=== PATIENT | female | born 1955 | race Caucasian/White ===

== ENCOUNTER 2017-05-01 13:39 | Inpatient (IN) ==
[2017-05-01 14:50] LABS: Basophils % 0.3 %; Eosinophils # 0.1 K/mcL (0.0-0.6); Eosinophils % 1.2 %; Hemoglobin 16.4 g/dL (11.5-15.4); Immature Granulocytes % 0.4 % (0-4); Lymphocytes % 17.5 %; Mean Corpuscular HGB Conc 34.2 g/dL (31.6-35.5); Mean Corpuscular Hemoglobin 32.6 pg (28.0-33.3); Mean Corpuscular Volume 95.4 fL (83.0-100.0); Mean Platelet Volume 9.2 fL (9.4-12.4); Monocytes # 0.8 K/mcL (0.0-1.3); Monocytes % 7.5 %; Neutrophils # 8.2 K/mcL (1.6-8.9); Platelet Count 237 K/mcL (140-400); Red Blood Count 5.03 M/mcL (3.82-4.97); Red Cell Distribution Width 14.6 % (11.5-14.5); Segmented Neutrophils % 73.1 %
[2017-05-01 15:05] LABS: BUN/Creatinine Ratio 16 (6-26); Blood Urea Nitrogen 17 mg/dL (7-20); Calcium 9.3 mg/dL (8.6-10.8); Carbon Dioxide 26 mEq/L (19-29); Chloride 105 mEq/L (98-109); Glucose 176 mg/dL (70-99); Osmolality,Calculated 296 (280-300); Potassium 3.7 mEq/L (3.5-4.5); Sodium 140 mEq/L (136-145); eGFR For African Americans > 60 (> 60); eGFR For Non-African Americans 54 (> 60)
--- NOTE | 2017-05-01 15:58 | IR Progress Note ---
Vital Signs: Vital Signs/O2 Sat, Most Current Temp Pulse Resp BP Pulse Ox 98.9 F 113 18 120/73 87 05/01/17 13:45 05/01/17 14:50 05/01/17 14:50 05/01/17 14:50 05/01/17 14:50 Recent Labs: Lab Results 05/01/17 05/01/17 14:22 14:22 WBC 11.2 H RBC 5.03 H Hgb 16.4 H Hct 48.0 H MCV 95.4 MCH 32.6 MCHC 34.2 RDW 14.6 H Plt Count 237 MPV 9.2 L Neutrophils # 8.2 Lymphocytes # 2.0 Monocytes # 0.8 Eosinophils # 0.1 Basophils # 0.0 Sodium 140 Potassium 3.7 Chloride 105 Carbon Dioxide 26 BUN 17 Creatinine 1.04 Est GFR ( Amer) > 60 Est GFR (Non-Af Amer) 54 L BUN/Creatinine Ratio 16 Glucose 176 H Calcium 9.3 Assessment and Plan Asked to perform left thoracentesis. Survey ultrasound shows no fluid, although this is limited given her body habitus. Recommend CT chest for further evaluation. Discussed with ER physician.
--- NOTE | 2017-05-01 16:23 | Emergency Department Note ---
Disposition Clinical Impression: Recurrent left pleural effusion Disposition: Admitted As Inpatient Condition: Fair Referrals: Tamara Castorena CNP [Primary Care Provider] - Forms: ED Satisfaction Letter General Adult HPI - General Chief complaint: ED Shortness of Breath/Dyspnea Stated complaint: YVONNE Time Seen by Provider: 05/01/17 15:28 Source: patient Limitations: no limitations - History of Present Illness HPI Narrative: This is a 61-year-old female presents with dyspnea that she says has been going on over several days. She apparently does have a history of lung malignancy and is under treatment for this with oncology. She states that a long time ago she had have a pleurocentesis done. Now she feels short of breath. Worse with lying flat. She does have some chronic lower extremity edema as well. She has not had any chest pain. She did not seem to be aware of any history of COPD or CHF. Pain Scale: 0 - Related Data Home Medications Medication Instructions Recorded Confirmed Amitriptyline [Elavil] 50 mg PO BID 07/09/15 04/10/17 Aspirin Enteric Coated [Aspirin EC] 81 mg PO DAILY 07/09/15 04/10/17 Pravastatin Sodium [Pravachol] 20 mg PO DAILY 07/09/15 04/10/17 Metformin HCl [Metformin HCl ER] 500 mg PO DAILY 07/02/16 04/10/17 Lisinopril [Zestril] 20 mg PO DAILY 08/09/16 04/10/17 Brimonidine Tartrate/Timolol 1 drop OP BID 10/24/16 04/10/17 [Combigan 0.2%-0.5% Eye Drops] Latanoprost [Xalatan] 1 drop OP HS 10/24/16 04/10/17 Oxycodone HCl/Acetaminophen 1 tab PO 5XD PRN 10/24/16 04/10/17 [Percocet 10-325 mg Tablet] Paroxetine HCl [Paroxetine] 40 mg PO DAILY 11/01/16 04/10/17 Previous Rx's Medication Instructions Recorded Prochlorperazine Maleate 10 mg PO Q6HR PRN #40 tablet 11/02/16 [Compazine] LORazepam [Ativan] 0.5 mg PO Q6H PRN #90 tablet 11/30/16 Sucralfate [Carafate] 1 gm PO QIDAC #120 tablet 03/14/17 Allergies Allergy/AdvReac Type Severity Reaction Status Date / Time Sulfa (Sulfonamide Allergy Rash Verified 10/24/16 15:33 Antibiotics) All systems ED: reviewed and negative except as stated. Constitutional: Reports: weakness. Denies: fever Cardiovascular: Denies: chest pain Gastrointestinal: Denies: vomiting Past Medical History - Past Medical History Attestation: Yes The following information was validated with the patient. Medical history: Reports: cancer, COPD, diabetes, fibromyalgia, glaucoma, hypertension, venous stasis Surgical history: Reports: appendectomy, cataract, cholecystectomy, ureteral stent Psychiatric history: Reports: anxiety, depression [employer] history: Reports: no [employer] history - Social History Smoking Status: Current every day smoker Smokeless Tobacco Status: No Alcohol use: Reports: none Drug use: Reports: none Physical Exam Patient is morbidly obese - General Limitations: no limitations General appearance: alert - Head Head exam: atraumatic - Eye Eye exam: Present: PERRL - ENT ENT exam: normal oropharynx - Respiratory Respiratory exam: Present: other (Diminished breath sounds on the left) - Cardiovascular Cardiovascular exam: Present: regular rate, normal rhythm - Abdominal Exam Abdominal exam: Present: soft, Non-Tender - Extremities Exam Extremities exam: Present: other (+3 lower extremity edema) Course Course Narrative: This patient's initial chest x-ray showed keiry out of the left side which we initially suspected was a pleural effusion to a large degree. I consulted interventional radiology. He was not able to find the fluid by ultrasound which we suspected might be due to the patient's body habitus that she is very morbidly obese. Therefore interventional radiology recommended getting a CT scan to further evaluate if that was actually what was going on. She does have a large pleural effusion there per the radiologist on the CT report. At this point IRs now gone. She will need to be admitted and this will likely be done in the morning. The patient has remained clinically stable. Case discussed with the hospitalist to arrange for admission. Vital Signs Temperature 98.9 F 05/01/17 13:45 Pulse Rate 113 05/01/17 13:45 Respiratory Rate 18 05/01/17 13:45 Blood Pressure 120/73 05/01/17 13:45 O2 Sat by Pulse Oximetry 87 05/01/17 13:45 Temperature 98.9 F 05/01/17 13:45 Pulse Rate 113 05/01/17 14:50 Respiratory Rate 18 05/01/17 14:50 Blood Pressure 120/73 05/01/17 14:50 O2 Sat by Pulse Oximetry 87 05/01/17 14:50 Oxygen Delivery Oxygen Delivery Room Air Medical Decision Making - Medical Records Medical records reviewed: Yes I reviewed the patient's medical records. - Lab Data Lab results reviewed: Yes I reviewed the patient's lab results. Result diagrams: 05/01/17 14:22 05/01/17 14:22 Lab Results 05/01/17 05/01/17 05/01/17 Range/Units 14:22 14:22 14:22 WBC 11.2 H (4.3-11.1) K/mcL RBC 5.03 H (3.82-4.97) M/mcL Hgb 16.4 H (11.5-15.4) g/dL Hct 48.0 H (35.3-44.9) % MCV 95.4 (83.0-100.0) fL MCH 32.6 (28.0-33.3) pg MCHC 34.2 (31.6-35.5) g/dL RDW 14.6 H (11.5-14.5) % Plt Count 237 (140-400) K/mcL MPV 9.2 L (9.4-12.4) fL Immature Gran % 0.4 (0-4) % Seg Neutrophils % 73.1 % Lymphocytes % 17.5 % Monocytes % 7.5 % Eosinophils % 1.2 % Basophils % 0.3 % Neutrophils # 8.2 (1.6-8.9) K/mcL Lymphocytes # 2.0 (0.6-4.6) K/mcL Monocytes # 0.8 (0.0-1.3) K/mcL Eosinophils # 0.1 (0.0-0.6) K/mcL Basophils # 0.0 (0.0-0.2) K/mcL Sodium 140 (136-145) mEq/L Potassium 3.7 (3.5-4.5) mEq/L Chloride 105 (98-109) mEq/L Carbon Dioxide 26 (19-29) mEq/L BUN 17 (7-20) mg/dL Creatinine 1.04 (0.57-1.11) mg/dL Est GFR ( Amer) > 60 (> 60) Est GFR (Non-Af Amer) 54 L (> 60) BUN/Creatinine Ratio 16 (6-26) Glucose 176 H (70-99) mg/dL Calculated Osmolality 296 (280-300) Calcium 9.3 (8.6-10.8) mg/dL Troponin I 0.01 (0-0.03) ng/mL B-Natriuretic Peptide (0-100) pg/mL Urine Color (Yellow) Urine Clarity (Clear) Urine pH (5.0-8.0) pH Units Ur Specific [place] (1.010-1.025) Urine Protein (Neg-Trace) mg/dL Urine Glucose (UA) (Normal) mg/dL Urine Ketones (Negative) mg/dL Urine Blood (Negative) Urine Nitrite (Negative) Urine Bilirubin (Negative) Urine Urobilinogen (Normal) mg/dL Ur Leukocyte Esterase (Negative) Urine Microscopic RBC (0-3) per hpf Urine Microscopic WBC (0-3) per hpf Ur Squamous Epith Cells (None-Few) per lpf Urine Bacteria (None-Few) per hpf Hyaline Casts (None-Few) per lpf Ur Culture Indicated? (NO) 05/01/17 05/01/17 Range/Units 14:22 16:05 WBC (4.3-11.1) K/mcL RBC (3.82-4.97) M/mcL Hgb (11.5-15.4) g/dL Hct (35.3-44.9) % MCV (83.0-100.0) fL MCH (28.0-33.3) pg MCHC (31.6-35.5) g/dL RDW (11.5-14.5) % Plt Count (140-400) K/mcL MPV (9.4-12.4) fL Immature Gran % (0-4) % Seg Neutrophils % % Lymphocytes % % Monocytes % % Eosinophils % % Basophils % % Neutrophils # (1.6-8.9) K/mcL Lymphocytes # (0.6-4.6) K/mcL Monocytes # (0.0-1.3) K/mcL Eosinophils # (0.0-0.6) K/mcL Basophils # (0.0-0.2) K/mcL Sodium (136-145) mEq/L Potassium (3.5-4.5) mEq/L Chloride (98-109) mEq/L Carbon Dioxide (19-29) mEq/L BUN (7-20) mg/dL Creatinine (0.57-1.11) mg/dL Est GFR ( Amer) (> 60) Est GFR (Non-Af Amer) (> 60) BUN/Creatinine Ratio (6-26) Glucose (70-99) mg/dL Calculated Osmolality (280-300) Calcium (8.6-10.8) mg/dL Troponin I (0-0.03) ng/mL B-Natriuretic Peptide 27 (0-100) pg/mL Urine Color Dark Yellow (Yellow) Urine Clarity Turbid A (Clear) Urine pH 7.5 (5.0-8.0) pH Units Ur Specific [place] 1.021 (1.010-1.025) Urine Protein 30 H (Neg-Trace) mg/dL Urine Glucose (UA) Normal (Normal) mg/dL Urine Ketones Negative (Negative) mg/dL Urine Blood Large H (Negative) Urine Nitrite Positive A (Negative) Urine Bilirubin Negative (Negative) Urine Urobilinogen Normal (Normal) mg/dL Ur Leukocyte Esterase Large H (Negative) Urine Microscopic RBC TNTC H (0-3) per hpf Urine Microscopic WBC TNTC H (0-3) per hpf Ur Squamous Epith Cells Many H (None-Few) per lpf Urine Bacteria Many H (None-Few) per hpf Hyaline Casts None Seen (None-Few) per lpf Ur Culture Indicated? YES A (NO) - Radiology Data Radiology results reviewed: Yes I reviewed the patient's radiology results. - EKG Data EKG #1 EKG attestation: Yes I reviewed and interpreted this EKG. EKG results narrative: EKG interpreted by me showing sinus tachycardia rate 114, QRS of 90, QTC of 399 , axis of 78 no new ischemic changes.
[2017-05-01 18:10] LABS: Bilirubin,Urine Negative (Negative); Blood,Urine Large (Negative); Clarity,Urine Turbid (Clear); Color,Urine Dark Yellow (Yellow); Glucose,Urine (UA) Normal (Normal); Ketones,Urine Negative (Negative); Leukocyte Esterase,Urine Large (Negative); Nitrite,Urine Positive (Negative); PH,Urine 7.5 pH Units (5.0-8.0); Protein,Urine 30 mg/dL (Neg-Trace); Specific Gravity,Urine 1.021 (1.010-1.025); Urobilinogen,Urine Normal (Normal)
[2017-05-01 18:11] LABS: Bacteria,Urine Many per hpf (None-Few); Hyaline Casts,Urine None Seen per lpf (None-Few); RBC,Urine TNTC per hpf (0-3); Squamous Epithelial Cell,Urine Many per lpf (None-Few); WBC,Urine TNTC per hpf (0-3)
[2017-05-01] MEDS ORDERED: Ondansetron 4 MG/2 ML VIAL IVP PRN (21:59)
[2017-05-01] MEDS ORDERED: *HR* Morphine 2 MG/ML SYRINGE IVP PRN (21:59)
[2017-05-01] MEDS ORDERED: Naloxone 0.4 MG/ML INJ IVP PRN (21:59)
[2017-05-01] MEDS ORDERED: Acetaminophen 325 MG TABLET PO PRN (21:59)
[2017-05-01] MEDS ORDERED: D5% in Water 1,000 ML IVC PRN (22:01)
[2017-05-01] MEDS ORDERED: Dextrose Gel 15 GM PO PRN ×2 (22:01)
[2017-05-01] MEDS ORDERED: *HR* Dextrose 50 % in Water (Syg) 50 ML SYRINGE IVP PRN (22:01)
[2017-05-01] MEDS ORDERED: *HR* LORazepam 0.5 MG TABLET PO PRN (22:02)
--- NOTE | 2017-05-01 22:07 | Internal Med History&Physical ---
Date of Encounter: 05/01/17 Time of Encounter: 22:06 Assessment and Plan (1) Acute respiratory failure with hypoxia Current visit: Yes Status: Acute Acute hypoxic respiratory failure secondary to large recurrent pleural effusion likely malignant related to lung cancer Start Lasix IV twice a day, strict I's and O's, daily weight Schedule thoracentesis in the morning with interventional radiology Nothing by mouth after midnight for procedure Omeprazole for GI prophylaxis and sequential compression devices for DVT prophylaxis. The patient will be admitted as inpatient, expected stay more than 2 minutes. DNR CC arrest DNI. Time spent on this admission 45 minutes (2) Urinary tract infection Current visit: No Status: Acute Start Levaquin, await culture report Order lactic acid and blood cultures Qualifiers: Urinary tract infection type: site unspecified Hematuria presence: without hematuria Qualified Code(s): N39.0 - Urinary tract infection, site not specified (3) COPD (chronic obstructive pulmonary disease) Current visit: No Status: Chronic Stable, no steroids Qualifiers: COPD type: unspecified COPD Qualified Code(s): J44.9 - Chronic obstructive pulmonary disease, unspecified (4) Hypertension Current visit: No Status: Chronic Qualifiers: Hypertension type: essential hypertension Qualified Code(s): I10 - Essential (primary) hypertension (5) Diabetes Current visit: No Status: Chronic Insulin sliding scale Qualifiers: Diabetes mellitus type: type 2 Diabetes mellitus complication status: with skin complications Diabetes mellitus complication detail: with foot ulcer Diabetes mellitus mcfp insulin use: without termite inspector use Qualified Code( s): E11.621 - Type 2 diabetes mellitus with foot ulcer; L97.509 - Non-pressure chronic ulcer of other part of unspecified foot with unspecified severity (6) Morbid obesity with BMI of 70 and over, adult Current visit: No Status: Acute (7) Tobacco use Current visit: No Status: Acute smoking cessation counseling given for 5 minutes.ncot patch ordered (8) Pleural effusion Current visit: No Status: Acute Recurrent left pleural effusion Plan as stated above (9) Small cell carcinoma of left lung Current visit: No Status: Acute (10) Recurrent left pleural effusion Current visit: Yes Status: Acute Internal Medicine - H&P: HPI Chief complaint: Short of breath Admitted From: Emergency Dept History of present illness: Ms. Braswell is a 61 year old female with a past medical history of small cell carcinoma status post chemotherapy and radiotherapy, chronic kidney disease is stage III, diabetes type 2 not insulin-dependent and recurrent left pleural effusion status post thoracenteses in the past. The patient came complaining of severe difficulty breathing worse in the past 3 days, bringing up clear phlegm. A CT scan of the thorax shows a very large left pleural effusion that is compressing the entire lung. She was desaturating down to 87%, heart rate was 113 White blood cell count 11.2 hemoglobin is 16.4, has been complaining of leg edema and some dysuria. The UA shows too numerous to count white blood cells, many bacteria and positive nitrates. Urine is very foul-smelling. Patient denies any pain at the moment. Feels very weak Past Med Surg Social Fam HX - Past Medical History Medical history: cancer (Left small cell carcinoma of the lung status post chemotherapy and radiation), COPD (Oxygen dependent using oxygen only as needed) , diabetes (Not insulin-dependent), fibromyalgia, glaucoma, hypertension, venous stasis, other (Chronic kidney disease stage III, depression, glaucoma, venous test his, nephrolithiasis, tobacco use, recurrent left pleural effusion likely malignant, respiratory failure, osteoarthritis) Psychiatric history: anxiety, depression - Past Surgical History Surgical History: appendectomy, cataract, cholecystectomy, ureteral stent, other (Bronchoscopy, cataract surgery, thoracentesis) - Social History Smoking Status: Current every day smoker Packs per day: One half packs per day Smokeless Tobacco Status: No Alcohol use: none Drug use: none - Family History Mother Living Status: Hx Family Cardiac Disorders: No Hx Family Respiratory Disorders: No Hx Family Cancer: Yes Father Living Status: Hx Family Cardiac Disorders: No Hx Family Respiratory Disorders: No Hx Family Cancer: Yes - Additional Family History Additional family history: Father with colon cancer, mother with ovarian cancer and myocardial infarction Internal Medicine - H&P: Meds Amitriptyline [Elavil] 50 mg PO BID 07/09/15 [History] Aspirin Enteric Coated [Aspirin EC] 81 mg PO DAILY 07/09/15 [History] Pravastatin Sodium [Pravachol] 20 mg PO DAILY 07/09/15 [History] Metformin HCl [Metformin HCl ER] 500 mg PO DAILY 07/02/16 [History] Lisinopril [Zestril] 20 mg PO DAILY 08/09/16 [History] Brimonidine Tartrate/Timolol [Combigan 0.2%-0.5% Eye Drops] 1 drop OP BID [History] Latanoprost [Xalatan] 1 drop OP HS 10/24/16 [History] Oxycodone HCl/Acetaminophen [Percocet 10-325 mg Tablet] 1 tab PO 5XD PRN [History] Paroxetine HCl [Paroxetine] 40 mg PO DAILY 11/01/16 [History] LORazepam [Ativan] 0.5 mg PO Q6H PRN #90 tablet 11/30/16 [Rx] Albuterol Sulfate [Albuterol Inhaler] 2 puff IH Q4H PRN 05/01/17 [History] Oxygen 4 l NS AD 05/01/17 [History] Allergies Sulfa (Sulfonamide Antibiotics) Allergy (Verified 10/24/16 15:33) Rash All Systems PM: A 10-system review of systems was performed and is negative for pertinent findings except as documented above in the HPI. Review of systems: She is short of breath, other systems out of the 10 reviewed were negative - Constitutional Vitals: Temp Pulse Resp BP Pulse Ox 98.9 F 105 16 127/92 95 05/01/17 13:45 05/01/17 21:00 05/01/17 21:58 05/01/17 21:58 05/01/17 21:00 General appearance: Present: A&O X 3, morbidly obese - Head Head exam: Present: atraumatic, normocephalic - Eye Eye exam: Present: PERRL, conjuntiva pink, sclera anicteric Pupils: Present: PERRL - Neck Neck exam general surgery: Present: supple, trachea midline. Absent: lymphadenopathy - Respiratory Respiratory exam: Present: CTAB. Absent: accessory muscle use, rales (Blunted breath sounds in the left lung field), rhonchi, wheezes - Cardiovascular Cardiovascular exam: Present: RRR, +S1, +S2. Absent: diastolic murmur, gallop, rubs, systolic murmur - GI/Abdominal GI/Abdominal exam: Present: normal bowel sounds, soft, no peritoneal signs. Absent: distended, tenderness - Extremities Exam Extremities exam: Present: pedal edema (+2 pitting edema in both lower extremities), warm, radial pulses palpable and symetrical. Absent: calf tenderness, cyanotic - Neurological Exam Neurological exam: Present: CN II-XII intact, oriented X3, no focal deficits. Absent: pronater drift, facial droop, speech deficit - Skin Skin exam: Present: dry, intact Internal Med - H&P Results - Labs CBC & Chem 7: 05/01/17 14:22 05/01/17 14:22
[2017-05-01] MEDS ORDERED: Insulin LISPRO 300 UNITS/3 ML VIAL SQ SCH (22:15)
[2017-05-01] MEDS: Ipratropium/Albuterol Neb 3 ML IH SCH (22:19)
[2017-05-01] MEDS: Furosemide 40 MG/4 ML VIAL IVP SCH (23:00)
[2017-05-01] MEDS: Levofloxacin 750 MG/150 ML 750 MG/150 ML BAG IVPB SCH (23:00)
[2017-05-01] MEDS: Nicotine 21 MG PATCH.TD24 TD SCH (23:00)
[2017-05-02] MEDS ORDERED: *HR* OxyCODONE/APAP 10/325 TABLET PO PRN ×2 (01:22→11:41)
[2017-05-02 03:44] LABS: Hemoglobin 16.1 g/dL (11.5-15.4); Mean Corpuscular HGB Conc 33.5 g/dL (31.6-35.5); Mean Corpuscular Hemoglobin 31.8 pg (28.0-33.3); Mean Corpuscular Volume 94.7 fL (83.0-100.0); Mean Platelet Volume 8.7 fL (9.4-12.4); Platelet Count 240 K/mcL (140-400); Red Blood Count 5.07 M/mcL (3.82-4.97); Red Cell Distribution Width 14.6 % (11.5-14.5)
[2017-05-02 03:53] LABS: BUN/Creatinine Ratio 17 (6-26); Blood Urea Nitrogen 17 mg/dL (7-20); Calcium 9.3 mg/dL (8.6-10.8); Carbon Dioxide 28 mEq/L (19-29); Chloride 105 mEq/L (98-109); Glucose 158 mg/dL (70-99); Osmolality,Calculated 295 (280-300); Potassium 3.9 mEq/L (3.5-4.5); Sodium 140 mEq/L (136-145); eGFR For African Americans > 60 (> 60); eGFR For Non-African Americans 58 (> 60)
[2017-05-02] MEDS: Ipratropium/Albuterol Neb 3 ML IH SCH ×3 (04:54→16:48)
[2017-05-02] MEDS ORDERED: Insulin LISPRO 300 UNITS/3 ML VIAL SQ SCH (07:30)
[2017-05-02] MEDS: Nicotine 21 MG PATCH.TD24 TD SCH (08:14)
[2017-05-02] MEDS: Levofloxacin 750 MG/150 ML 750 MG/150 ML BAG IVPB SCH (08:15)
[2017-05-02] MEDS ORDERED: Aspirin Enteric Coated 81 MG Tablet PO SCH (09:00)
[2017-05-02] MEDS ORDERED: COMBIGAN OP SCH (09:00)
[2017-05-02] MEDS ORDERED: Lisinopril 20 MG TABLET PO SCH (09:00)
[2017-05-02] MEDS ORDERED: EYE OP SCH (09:00)
--- NOTE | 2017-05-02 09:02 | Electrocardiograph Report ---
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
--- NOTE | 2017-05-02 09:13 | Pulmonology Consult Note ---
<Korey Landers - Last Filed: 05/02/17 14:18> Date of Encounter: 05/02/17 Time of Encounter: 09:08 Assessment and Plan (1) Acute respiratory failure with hypoxia Current Visit: Yes Status: Acute 61-year-old female with history of COPD, EVARISTO, small cell lung cancer, current smoker presents with chief complaint of shortness of breath of 3 days with increasing oxygenation requirements. Patient underwent CT chest showing large left pleural effusion encompassing entire left thoracic cavity with compression of the left lung. Patient had recurrent pleural effusions, s/p thoracentesis in the past secondary to left small cell lung cancer. Left pleural effusion resolved after starting chemotherapy which was completed in January. Patient had radiation therapy which was completed in February. -2nd to left pleural effusion 2nd to malignancy -IR consulted for throacentesis -contunue supplemental O2 -Continue diuresis with Lasix: Patient has bilateral lower extremity pitting edema. -Strict I's and O's. (2) Recurrent left pleural effusion Current Visit: Yes Status: Acute 2nd left small cell lung cancer may need reevaluation by oncology for further treatment of small cell lung cancer Will need pleurx catheter (3) DVT prophylaxis Current Visit: Yes Status: Acute EPCD start heparin (4) Small cell carcinoma of left lung Current Visit: Yes Status: Acute hx of small cell carcinoma of left lung. Negative for metasatic disease as per Onc consult note diagnosed in Oct 2016 s/p chemo radiation will start radiation of brain for prophylaxis Patient had recurrent left pleural effusions before starting chemotherapy however they resolved after treatment. Consult oncology for further recommendations (5) Tobacco use Current Visit: No Status: Acute Patient has [id number] history. Continues to smoke half a pack a day States she is planning on quitting. She was told the risks of continued cigarette smoking. (6) COPD (chronic obstructive pulmonary disease) Current Visit: Yes Status: Chronic Denies worsening sputum, cough. Reports dyspnea. However this secondary to left pleural effusion. Not in exacerbation. Continue DuoNeb, Qualifiers: COPD type: unspecified COPD Qualified Code(s): J44.9 - Chronic obstructive pulmonary disease, unspecified (7) EVARISTO (obstructive sleep apnea) Current Visit: Yes Status: Suspected History of obstructive sleep apnea. Patient uses CPAP at home. We will consult RT for CPAP at night. History of Present Illness Consult date: 05/01/17 Requesting physician: Ben Costello Reason for consult: pleural effusion Chief complaint: sob History of present illness: 61-year-old female with history of small cell lung cancer, current smoker diagnosed October 2016 presented with chief complaint of shortness of breath that started 3 days ago. Patient states that at home she is on as needed oxygen , which she has not used for many days, and ended up using oxygen daily for the past 3 days. Patient has chronic clear productive sputum that has not been worsening, without change in color, without blood. Reports wheezing. She denied fevers, chills, chest pain. Patient underwent CT scan which showed large left pleural effusion encompassing the entire left thoracic cavity and compressing entire left lung. Patient was hypoxic on presentation at SPO2 87%, heart rate 113 and increased wbc 11. She was also found to have UTI and started on Levaquin. Past Med Surg Social Fam HX - Past Medical History Medical history: cancer, COPD, diabetes, fibromyalgia, glaucoma, hyperlipidemia , hypertension, venous stasis, other Psychiatric history: anxiety, depression - Past Surgical History Surgical History: appendectomy, cataract, cholecystectomy, ureteral stent, other - Social History Smoking Status: Current every day smoker Packs per day: One half packs per day Smokeless Tobacco Status: No Alcohol use: none Drug use: none - Family History Mother Living Status: Age at : 73 Hx Family Cardiac Disorders: No Hx Family Respiratory Disorders: No Hx Family Cancer: Yes (uterus) Father Living Status: Age at : 68 Cause of : colon ca Hx Family Cardiac Disorders: No Hx Family Respiratory Disorders: No Hx Family Cancer: Yes (colon) Medications and Allergies Amitriptyline [Elavil] 50 mg PO BID 07/09/15 [History] Aspirin Enteric Coated [Aspirin EC] 81 mg PO DAILY 07/09/15 [History] Pravastatin Sodium [Pravachol] 20 mg PO DAILY 07/09/15 [History] Metformin HCl [Metformin HCl ER] 500 mg PO DAILY 07/02/16 [History] Lisinopril [Zestril] 20 mg PO DAILY 08/09/16 [History] Brimonidine Tartrate/Timolol [Combigan 0.2%-0.5% Eye Drops] 1 drop OP BID [History] Latanoprost [Xalatan] 1 drop OP HS 10/24/16 [History] Oxycodone HCl/Acetaminophen [Percocet 10-325 mg Tablet] 1 tab PO 5XD PRN [History] Paroxetine HCl [Paroxetine] 40 mg PO DAILY 11/01/16 [History] LORazepam [Ativan] 0.5 mg PO Q6H PRN #90 tablet 11/30/16 [Rx] Albuterol Sulfate [Albuterol Inhaler] 2 puff IH Q4H PRN 05/01/17 [History] Oxygen 4 l NS AD 05/01/17 [History] Cefdinir [Omnicef] 300 mg PO BID 7 Days 05/02/17 [Rx] Allergies Sulfa (Sulfonamide Antibiotics) Allergy (Verified 10/24/16 15:33) Rash All Systems: A 10-system review of systems was performed and is negative for pertinent findings except as documented above in the HPI. Review of Systems: Constitutional: Denies fever, chills HEENT: Denies headache, vision changes, neck pain, sore throat, rhinorrhea Heart: Denies chest pain palpitations Lungs: Reports shortness of breath, clear productive sputum, wheezing, denies pleuritic chest pain, cough Abdomen: Denies abdominal pain nausea vomiting diarrhea Extremities: Reports lower extremity swelling, denies lower extremity pain Psych: Reports anxiety and depression Physical Examination Vital Signs: Vital Signs, Last 4 Hours Temp Pulse Resp BP Pulse Ox 05/02/17 08:51 17 96 05/02/17 08:50 99 17 125/52 95 05/02/17 07:10 98.3 F 101 17 94/46 95 General appearance: no acute distress Eyes: nonicteric ENT: oropharynx moist Mallampati (class): 3 Neck: supple, no lymphadenopathy, no JVD Effort: normal Inspection: normal, kyphosis Auscultation: left: diminished breath sounds (Absent lung sounds on the left), right: rales (Right lower base) Percussion: left: dull (Entire left lung field), right: not dull Cardiovascular: regular rate and rhythm Gastrointestinal: normoactive bowel sounds, soft, non-tender, non-distended Integumentary: other (Discoloration bilateral lower extremity secondary to venous stasis) Extremities: no cyanosis, no clubbing, pink and warm, edema (2+ pitting) Musculoskeletal: no deformities Gait: other (Wheelchair-bound) normal mental status, non-focal exam mood appropriate, affect normal Results - Laboratory Findings CBC and BMP: 05/02/17 03:33 05/02/17 03:33 Abnormal lab findings: Abnormal lab results WBC 11.6 K/mcL (4.3-11.1) H 05/02/17 03:33 RBC 5.07 M/mcL (3.82-4.97) H 05/02/17 03:33 Hgb 16.1 g/dL (11.5-15.4) H 05/02/17 03:33 Hct 48.0 % (35.3-44.9) H 05/02/17 03:33 RDW 14.6 % (11.5-14.5) H 05/02/17 03:33 MPV 8.7 fL (9.4-12.4) L 05/02/17 03:33 Est GFR (Non-Af Amer) 58 (> 60) L 05/02/17 03:33 Glucose 158 mg/dL (70-99) H 05/02/17 03:33 POC Glucose 165 (58-89) H 05/01/17 22:33 Urine Clarity Turbid (Clear) A 05/01/17 16:05 Urine Protein 30 mg/dL (Neg-Trace) H 05/01/17 16:05 Urine Blood Large (Negative) H 05/01/17 16:05 Urine Nitrite Positive (Negative) A 05/01/17 16:05 Ur Leukocyte Esterase Large (Negative) H 05/01/17 16:05 Urine Microscopic RBC TNTC per hpf (0-3) H 05/01/17 16:05 Urine Microscopic WBC TNTC per hpf (0-3) H 05/01/17 16:05 Ur Squamous Epith Cells Many per lpf (None-Few) H 05/01/17 16:05 Urine Bacteria Many per hpf (None-Few) H 05/01/17 16:05 Ur Culture Indicated? YES (NO) A 05/01/17 16:05 - Clinical Findings Intake & Output: Intake & Output 05/01/17 05/02/17 05/02/17 23:59 07:59 15:59 Intake Total 480 / 480 100 / 100 Output Total 300 / 300 300 / 300 Balance 180 / 180 -200 / -200 Consult Discharge Plan - Plan Instructions: Cefdinir (By mouth), Heart Failure (DC), Atrial Fibrillation (DC) , Thoracentesis (DC), Urinary Tract Infection in Women (DC), Diabetes Mellitus Type 2 in Adults (DC), Chronic Obstructive Pulmonary Disease (DC), Pleural Effusion (DC), Pleural Effusion (GEN), Chronic Hypertension (DC), Cigarette Smoking and Your Health, Consulting Analyst (GEN) Referrals: Dorothy Potter MD [Partnered Physician] - (Follow-up within a week for recurrent left-sided pleural effusion and possible placement of Pleurx catheter) Tamara Castorena CNP [Primary Care Provider] - 05/16/17 2:30 pm (Follow-up for hospital discharge follow-up and UTI) Prescriptions: Cefdinir [Omnicef] 300 mg PO BID 7 Days <Dorothy Potter - Last Filed: 05/02/17 17:41> Date of Encounter: 05/02/17 All Systems: A 10-system review of systems was performed and is negative for pertinent findings except as documented above in the HPI. Physical Examination Vital Signs: Vital Signs, Last 4 Hours Pulse Resp BP Pulse Ox 05/02/17 16:49 20 97 05/02/17 14:32 101 20 114/82 97 Results - Laboratory Findings CBC and BMP: 05/02/17 03:33 05/02/17 03:33 Abnormal lab findings: Abnormal lab results WBC 11.6 K/mcL (4.3-11.1) H 05/02/17 03:33 RBC 5.07 M/mcL (3.82-4.97) H 05/02/17 03:33 Hgb 16.1 g/dL (11.5-15.4) H 05/02/17 03:33 Hct 48.0 % (35.3-44.9) H 05/02/17 03:33 RDW 14.6 % (11.5-14.5) H 05/02/17 03:33 MPV 8.7 fL (9.4-12.4) L 05/02/17 03:33 Est GFR (Non-Af Amer) 58 (> 60) L 05/02/17 03:33 Glucose 158 mg/dL (70-99) H 05/02/17 03:33 POC Glucose 165 (58-89) H 05/01/17 22:33 Urine Clarity Turbid (Clear) A 05/01/17 16:05 Urine Protein 30 mg/dL (Neg-Trace) H 05/01/17 16:05 Urine Blood Large (Negative) H 05/01/17 16:05 Urine Nitrite Positive (Negative) A 05/01/17 16:05 Ur Leukocyte Esterase Large (Negative) H 05/01/17 16:05 Urine Microscopic RBC TNTC per hpf (0-3) H 05/01/17 16:05 Urine Microscopic WBC TNTC per hpf (0-3) H 05/01/17 16:05 Ur Squamous Epith Cells Many per lpf (None-Few) H 05/01/17 16:05 Urine Bacteria Many per hpf (None-Few) H 05/01/17 16:05 Ur Culture Indicated? YES (NO) A 05/01/17 16:05 Pleural Appearance Cloudy (Clear) A 05/02/17 11:00 Pleural RBC 0.003 M/mcL (0.000-0.002) H 05/02/17 11:00 - Microbiology Findings Microbiology Findings: Microbiology, Last 48 Hours 05/02/17 11:00 Body Fluid Culture - Preliminary Pleural Fluid - Clinical Findings Intake & Output: Intake & Output 05/02/17 05/02/17 05/02/17 07:59 15:59 23:59 Intake Total 100 / 100 350 / 350 Output Total 300 / 300 200 / 200 Balance -200 / -200 150 / 150 - Attending Attestation I examined this patient and my medical decision-making was reviewed with the ORACLE TECHNICAL ARCHITECT/PA/Advanced Practice Nurse/Resident Physician. I agree with the documented findings, disposition and treatment plan as described except to the extent set forth below. Patient seen and examined. Labs, radiology, chart personally reviewed. 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 Already had therapeutic thoracentesis and discussed with primary team to make sure to check fluid for cytology for evidence of recurrence malignancy. Patient already has an appointment in the cancer Center. She feels better now and I explained to her she may need a PleurX pleural catheter can be done as outpatient or recurrent pleural effusion can be treated with periodic thoracentesis Thank you very much for the consultation
--- NOTE | 2017-05-02 09:28 | Internal Med Progress Note ---
Date of Encounter: 05/02/17 Time of Encounter: 09:28 - Constitutional Vitals: Temp Pulse Resp BP Pulse Ox 98.3 F 99 17 125/52 96 05/02/17 07:10 05/02/17 08:50 05/02/17 08:51 05/02/17 08:50 05/02/17 08:51 General appearance: Present: A&O X 3, morbidly obese Internal Medicine: Result - Labs CBC & Chem 7: 05/02/17 03:33 05/02/17 03:33 Labs: Short CBC 05/02/17 Range/Units 03:33 WBC 11.6 H (4.3-11.1) K/mcL Hgb 16.1 H (11.5-15.4) g/dL Hct 48.0 H (35.3-44.9) % Plt Count 240 (140-400) K/mcL BMP 05/02/17 03:33 Sodium 140 Potassium 3.9 Chloride 105 Carbon Dioxide 28 BUN 17 Creatinine 0.98 Glucose 158 H Calcium 9.3 Consult Discharge Plan - Plan Referrals: Tamara Castorena, MOONER [Primary Care Provider] -
[2017-05-02] MEDS ORDERED: *HR* Morphine 2 MG/ML SYRINGE IVP PRN (11:41)
[2017-05-02] MEDS: Furosemide 40 MG/4 ML VIAL IVP SCH (14:46)
--- NOTE | 2017-05-02 15:01 | Discharge Summary ---
<Ant Frazier - Last Filed: 05/02/17 14:56> Date of Encounter: 05/02/17 Time of Encounter: 14:56 - Discharge Diagnosis (1) Pleural effusion, left Priority: Primary Status: Acute (2) Small cell carcinoma of lung Priority: Primary Status: Acute Qualifiers: Qualified Code(s): C34.92 - Malignant neoplasm of unspecified part of left bronchus or lung (3) Morbid obesity with BMI of 60.0-69.9, adult Priority: Secondary Status: Acute (4) Tobacco abuse Priority: Secondary Status: Acute (5) Urinary tract infection Priority: Primary Status: Acute Qualifiers: Urinary tract infection type: site unspecified Hematuria presence: without hematuria Qualified Code(s): N39.0 - Urinary tract infection, site not specified (6) COPD (chronic obstructive pulmonary disease) Priority: Primary Status: Chronic Qualifiers: COPD type: unspecified COPD Qualified Code(s): J44.9 - Chronic obstructive pulmonary disease, unspecified (7) Hypertension Priority: Secondary Status: Chronic Qualifiers: Hypertension type: essential hypertension Qualified Code(s): I10 - Essential (primary) hypertension (8) Diabetes Priority: Secondary Status: Chronic Qualifiers: Diabetes mellitus type: type 2 Diabetes mellitus complication status: with skin complications Diabetes mellitus complication detail: with foot ulcer Diabetes mellitus residential insulin use: without terminal supervisor use Qualified Code( s): E11.621 - Type 2 diabetes mellitus with foot ulcer; L97.509 - Non-pressure chronic ulcer of other part of unspecified foot with unspecified severity - Discharge Medications Prescriptions: Cefdinir [Omnicef] 300 mg PO BID 7 Days Home Medications: Amitriptyline [Elavil] 50 mg PO BID 07/09/15 [History] Aspirin Enteric Coated [Aspirin EC] 81 mg PO DAILY 07/09/15 [History] Pravastatin Sodium [Pravachol] 20 mg PO DAILY 07/09/15 [History] Metformin HCl [Metformin HCl ER] 500 mg PO DAILY 07/02/16 [History] Lisinopril [Zestril] 20 mg PO DAILY 08/09/16 [History] Brimonidine Tartrate/Timolol [Combigan 0.2%-0.5% Eye Drops] 1 drop OP BID [History] Latanoprost [Xalatan] 1 drop OP HS 10/24/16 [History] Oxycodone HCl/Acetaminophen [Percocet 10-325 mg Tablet] 1 tab PO 5XD PRN [History] Paroxetine HCl [Paroxetine] 40 mg PO DAILY 11/01/16 [History] LORazepam [Ativan] 0.5 mg PO Q6H PRN #90 tablet 11/30/16 [Rx] Albuterol Sulfate [Albuterol Inhaler] 2 puff IH Q4H PRN 05/01/17 [History] Oxygen 4 l NS AD 05/01/17 [History] Cefdinir [Omnicef] 300 mg PO BID 7 Days 05/02/17 [Rx] Allergies/Adverse Reactions: Allergies Sulfa (Sulfonamide Antibiotics) Allergy (Verified 10/24/16 15:33) Rash Procedures/tests Complete & Pending: Procedures Performed prior 72 hours Category Date Time Status IR thoracentesis ultrasound [IR] Routine IR 05/02/17 Completed Date of admission: 05/01/17 22:37 Primary care physician: Tamara Castorena CNP Consults: 05/02/17 09:31 Consult to Respiratory Therapy [CONS] Routine Reason for Consult: CPAP, EVARISTO Call Completed: No Discharging clinician: Ant Frazier Anticipated date of discharge: 05/02/17 - Patient Status Disposition: Home, Self-Care Condition: Fair Functional capacity at discharge: uses cane/walker (Fall precaution) Overall status at discharge: patient is progressing back to baseline - Discharge Instructions Follow Up With: Dorothy Potter MD [Partnered Physician] - (Follow-up within a week for recurrent left-sided pleural effusion and possible placement of Pleurx catheter) Tamara Catsorena CNP [Primary Care Provider] - 05/16/17 2:30 pm (Follow-up for hospital discharge follow-up and UTI) - Diet and Activity Activity: resume usual activities as tolerated Diet: diabetic diet, low fat, low cholesterol, low salt diet Hospital course: Ms. Braswell is a 61 year old female with a history of small cell carcinoma of lung status post chemotherapy and radiation, who presented to ER with chief complaint of shortness of breath, CT scan of the chest show very large left pleural effusion which was compressing her left entire lung, patient states that she had a thoracentesis done 2 months ago, patient has a follow-up appointment with his radiation oncologist this month for possible radiation therapy of brain for prophylaxis of metastasis, interventional radiology and pulmonology service were consulted, patient had thoracentesis of the left lung, fluid analysis and cytology were sent to the lab, and after the procedure patient's shortness of breath significantly improved and she will be following up with pulmonology office as outpatient for possible Pleurx catheter placement in the future, therefore she will be discharged to home today in stable condition, urine culture came back gram-negative blayne and by looking at previous urine culture results, will discharge her with Omnicef for 7 days for her complicated UTI. - Time Spent with Patient Total time spent providing and/or coordinating discharge services: - Constitutional Vitals: Temp Pulse Resp BP Pulse Ox 98.1 F 99 16 112/53 94 05/02/17 11:32 05/02/17 11:32 05/02/17 11:32 05/02/17 11:32 05/02/17 11:32 General appearance: Present: cooperative, A&O X 3, morbidly obese, pleasant, answers questions appropriately - Respiratory Respiratory exam: Present: decreased breath sounds (Diminished on the left side diffusely). Absent: rales, rhonchi, wheezes - Cardiovascular Cardiovascular exam: Present: RRR, +S1, +S2. Absent: clicks, gallop, rubs, systolic murmur - GI/Abdominal GI/Abdominal exam: Present: normal bowel sounds, soft. Absent: distended, firm , guarding, rebound, rigid, tenderness - Extremities Exam Extremities exam: Present: pedal edema (Nonpitting mild bilateral), warm, radial pulses palpable and symetrical. Absent: calf tenderness, tenderness <Torrey Owusu - Last Filed: 05/02/17 16:09> Date of Encounter: 05/02/17 - Discharge Diagnosis (1) Acute respiratory failure with hypoxia Priority: Primary Status: Acute (2) Pleural effusion, left Status: Acute (3) Urinary tract infection Status: Acute Qualifiers: Urinary tract infection type: acute cystitis Hematuria presence: without hematuria Qualified Code(s): N30.00 - Acute cystitis without hematuria (4) Small cell carcinoma of left lung Priority: Secondary Status: Chronic (5) Diabetes Status: Chronic Qualifiers: Diabetes mellitus type: type 2 Diabetes mellitus complication status: with skin complications Diabetes mellitus complication detail: with foot ulcer Diabetes mellitus terminal supervisor insulin use: without terminal supervisor use Qualified Code( s): E11.621 - Type 2 diabetes mellitus with foot ulcer; L97.509 - Non-pressure chronic ulcer of other part of unspecified foot with unspecified severity (6) Hypertension Status: Chronic Qualifiers: Hypertension type: essential hypertension Qualified Code(s): I10 - Essential (primary) hypertension (7) Atrial fibrillation Priority: Secondary Status: Chronic Qualifiers: Atrial fibrillation type: chronic Qualified Code(s): I48.2 - Chronic atrial fibrillation (8) Morbid obesity with BMI of 60.0-69.9, adult Status: Acute Procedures/tests Complete & Pending: Procedures Performed prior 72 hours Category Date Time Status IR thoracentesis ultrasound [IR] Routine IR 05/02/17 Completed Date of admission: 05/01/17 22:37 Primary care physician: Tamara Castorena CNP Consults: 05/02/17 09:31 Consult to Respiratory Therapy [CONS] Routine Reason for Consult: CPAP, EVARISTO Call Completed: No Hospital course: Ms. Braswell is a 61 year old female - Time Spent with Patient Total time spent providing and/or coordinating discharge services: 37min - Constitutional Vitals: Temp Pulse Resp BP Pulse Ox 98.1 F 101 20 114/82 97 05/02/17 11:32 05/02/17 14:32 05/02/17 14:32 05/02/17 14:32 05/02/17 14:32 - Attending Attestation I examined this patient and my medical decision-making was reviewed with the Resident Physician on 05/02/17. I agree with the documented findings, disposition and treatment plan as described except to the extent set forth below. Ms. Braswell was admitted for large L pleural effusion. She underwent thoracentesis today and has been cleared for discharge and outpatient follow up. No fever. Less dyspnea now. Exam Alert. Comfortable at rest. Heart distant Diminished breath sounds L Plan D/C home today Outpatient follow up -may need Pleurx. Pt was admitted inpatient with the presumption she would be here greater than 2 midnights. Following thoracentesis she is improved and at this time she will be discharged home.
[2017-05-02 15:03] VITALS: BP 114/82
[2017-05-02 15:58] LABS: LDH,Pleural Fluid 181 Units/L (No Ref Range); Total Protein,Pleural Fluid 4.2 g/dL (No Ref Range); Triglycerides, Pleural Fluid 44 mg/dL (No Ref Range)
[2017-05-02 16:10] LABS: RBC,Pleural Fluid 0.003 M/mcL
[2017-05-02 17:23] LABS: Lymphocytes,Pleural Fluid 91.8 %
[2017-05-02 17:24] LABS: Appearance of Pleural Fl Cloudy (Clear)
== END 2017-05-02 18:37 | disposition home or self-care (01) | DRG 136 ==
LOC: EMEROO 13:39 → 2NENU 13:39
PROVIDERS: ADMIT Internal Medicine; ATTEND Internal Medicine